=== PATIENT | female | born 1945 | race Caucasian/White ===

== ENCOUNTER → 2016-10-25 | Outpatient (CLI) | payer MEDICARE ==
--- NOTE | 2016-10-27 08:30 | MM ---
Reason for exam: screening (asymptomatic). Last mammogram was performed 1 year ago. History: Patient is postmenopausal. Family history of breast cancer in paternal aunt at age 50. Benign stereotactic core biopsy of the right breast, August 26, 2004. Core biopsy of the right breast. Physical Findings: A clinical breast exam by your physician is recommended on an annual basis and results should be correlated with mammographic findings. MG Screening Mammo w CAD Bilateral CC and MLO view(s) were taken. Prior study comparison: October 15, 2015, bilateral MG screening mammo w CAD. October 07, 2014, bilateral MG screening mammo w CAD. October 06, 2013, bilateral digital screening mammo w/CAD. September 30, 2012, bilateral digital screening mammo w/CAD. September 27, 2011, bilateral digital screening mammo w/CAD. There are scattered fibroglandular densities. Asymmetric density superior anterior to middle depth left breast appears more defined. Probably represents summation shadow but warrants further evaluation. ASSESSMENT: Incomplete: need additional imaging evaluation, BI-RAD 0 RECOMMENDATION: Special view mammogram of the left breast. If lesion persists on supplemental views, image directed ultrasound is recommended. [facility] will attempt to contact patient to return for supplemental views and ultrasound if indicated.
== END | disposition home or self-care (01) ==
LOC: RADMAMWWP 12:23
PROVIDERS: ATTEND Family Medicine
DX: Z12.31 Encounter for screening mammogram for malignant neoplasm of breast (principal)

== ENCOUNTER → 2016-11-01 | Outpatient (CLI) | payer MEDICARE ==
--- NOTE | 2016-11-01 09:18 | MM ---
Reason for exam: additional evaluation requested from abnormal screening. Last mammogram was performed less than 1 month ago. History: Patient is postmenopausal. Family history of breast cancer in paternal aunt at age 50. Benign stereotactic core biopsy of the right breast, August 26, 2004. Core biopsy of the right breast. Physical Findings: Nurse did not find any significant physical abnormalities on exam. MG 3D Work Up W/Cad LT LM and MLO view(s) were taken of the left breast. Prior study comparison: October 25, 2016, bilateral MG screening mammo w CAD. October 15, 2015, bilateral MG screening mammo w CAD. October 07, 2014, bilateral MG screening mammo w CAD. The questioned asymmetric density superiorly and anteriorly does not persist on tomosynthesis images. A precautionary 6 month follow up is recommended. These results were verbally communicated with the patient and result sheet given to the patient on 11/01/16. ASSESSMENT: Probably benign, BI-RAD 3 RECOMMENDATION: Follow-up diagnostic mammogram of the left breast in 6 months.
== END | disposition home or self-care (01) ==
LOC: RADMAMWWP 08:14
PROVIDERS: ATTEND Family Medicine
DX: R92.8 Other abnormal and inconclusive findings on diagnostic imaging of breast (principal)
CPT/HCPCS: G0206; G0279

== ENCOUNTER → 2017-03-30 | Outpatient (CLI) | payer MEDICARE ==
--- NOTE | 2017-03-30 10:10 | MR ---
EXAMINATION TYPE: MR knee RT wo con DATE OF EXAM: 03/30/2017 COMPARISON: NONE HISTORY: Rt Knee pain TECHNIQUE: Multiplanar, multisequence imaging of the right knee is performed without IV contrast. FINDINGS: MEDIAL MENISCUS: There is increased signal within the posterior horn medial meniscus without communic ation with an articular surface compatible some internal derangement. LATERAL MENISCUS: There is oblique signal within the posterior horn medial meniscus which appears to extend towards the inferior aspect of the meniscus articular surface. Internal derangement or tear ma y be present. The anterior horn of the lateral meniscus is not well visualized CRUCIATE LIGAMENTS: The anterior and posterior cruciate ligaments are intact and unremarkable. COLLATERAL LIGAMENTS: The medial collateral ligament and lateral collateral ligament complex are inta ct and unremarkable. EXTENSOR MECHANISM: Visualized quadriceps and patellar tendons are intact. EFFUSION: Large joint effusion is present. Some superficial soft tissue swelling may be present ante riorly. POPLITEAL CYST: Popliteal cyst is present TRICOMPARTMENT SPACES: There is narrowing of the medial compartment joint space. Greater narrowing is along the lateral compartment joint space. Patellofemoral joint space narrowing is present. CARTILAGE: Diffuse thinning of the articular cartilage is present throughout the knee. This is more n oticeable along the anterior patellofemoral joint space and within the lateral compartment right knee . Note is made of tibial and femoral condylar spurring laterally and to a lesser degree medially. BONE MARROW SIGNAL: No focal abnormal marrow signal is appreciated. OTHER: No additional significant abnormality is appreciated. IMPRESSION: 1. Osteoarthritic degenerative change lateral compartment right knee. Milder degenerative changes pre sent within the medial compartment and patellofemoral joint space. 2. Large joint effusion. 3. Popliteal cyst. 4. Loss of the anterior horn lateral meniscus. 5. Oblique tear versus internal derangement of the posterior horn lateral meniscus. 6. Internal derangement posterior horn medial meniscus.
== END | disposition home or self-care (01) ==
LOC: RADMRIMAIN 06:07
PROVIDERS: ATTEND Orthopaedic Surgery
DX: M17.11 Unilateral primary osteoarthritis, right knee (principal); M71.21 Synovial cyst of popliteal space [Baker], right knee; M23.321 Other meniscus derangements, posterior horn of medial meniscus, right knee; M23.341 Other meniscus derangements, anterior horn of lateral meniscus, right knee

== ENCOUNTER → 2017-05-02 | Outpatient (CLI) | payer MEDICARE ==
--- NOTE | 2017-05-02 11:40 | MM ---
Reason for exam: follow-up at short interval from prior study. Last mammogram was performed 6 months ago. History: Patient is postmenopausal. Family history of breast cancer in paternal aunt at age 50. Benign stereotactic core biopsy of the right breast, August 26, 2004. Core biopsy of the right breast. Physical Findings: Nurse did not find any significant physical abnormalities on exam. MG 3D Diag Mammo W/Cad LT CC and MLO view(s) were taken of the left breast. Prior study comparison: November 01, 2016, left breast MG 3d work up w/cad LT. October 25, 2016, bilateral MG screening mammo w CAD. October 15, 2015, bilateral MG screening mammo w CAD. October 07, 2014, bilateral MG screening mammo w CAD. October 06, 2013, bilateral digital screening mammo w/CAD. September 30, 2012, bilateral digital screening mammo w/CAD. September 27, 2011, bilateral digital screening mammo w/CAD. There are scattered fibroglandular densities. Superior asymmetric density anterior to middle depth still appears more prominent but slightly less so from 2015. No underlying abnormality seen on tomosynthesis. Additional precautionary 6 month follow up recommended. These results were verbally communicated with the patient and result sheet given to the patient on 05/02/17. ASSESSMENT: Probably benign, BI-RAD 3 RECOMMENDATION: Follow-up diagnostic mammogram of both breasts in 6 months. Back on schedule for October 2017.
== END | disposition home or self-care (01) ==
LOC: RADMAMWWP 10:49
PROVIDERS: ATTEND Family Medicine
DX: R92.8 Other abnormal and inconclusive findings on diagnostic imaging of breast (principal)
CPT/HCPCS: G0206; G0279

== ENCOUNTER 2017-05-04 07:50 | Day surgery (SDC) | payer MEDICARE ==
[2017-04-30 10:06] VITALS: BMI 25.0
--- NOTE | 2017-05-03 12:33 | HP ---
CHIEF COMPLAINT: Right knee pain. HISTORY OF PRESENT ILLNESS: The patient is a 71-year-old retired female who presents with progressive right knee pain after a previous twisting injury. She has tried medications along with injection with recurrent symptoms. She notes intermittent locking. She notes she is limping. PAST MEDICAL HISTORY: Significant for hypothyroidism, hypertension, hypercholesterolemia. PAST SURGICAL HISTORY: Significant for appendectomy and partial thyroidectomy. CURRENT MEDICATIONS: 1. Lovastatin. 2. Synthroid. 3. Tenormin. She notes allergies to SULFA. Family history is significant for heart disease and cancer. SOCIAL HISTORY: Negative for current tobacco or alcohol use. A 16-point review of systems otherwise reviewed and is noncontributory. On examination, the patient is approximately 5 foot 6, 155 pounds of mesomorphic habitus. HEENT exam is nonfocal. Neck is supple. She has painless passive motion of her right hip. Straight leg raise is negative. Active motion right knee -6 to 85 degrees of flexion that compares to the left knee -4 to 140 degrees of flexion. On the right knee, she has a mild effusion. She is tender about the medial and lateral joint line. Collaterals are stable, Angel is negative. Chandra's elicits medial and lateral pain. She has genu valgum alignment. Her distal neurovascular exam appears to be intact in the right lower extremity. X-rays from 02/07/2017 shows moderate lateral and patellofemoral compartment narrowing. MRI from 04/09/2017 shows a posterolateral meniscal tear along with degenerative changes. IMPRESSION: 1. Right knee symptomatic lateral meniscal tear. 2. Right knee moderate lateral and patellofemoral compartment osteoarthrosis. RECOMMENDATIONS: I talked to the patient at length regarding her treatment options. At this point, she is quite symptomatic and having pain and mechanical symptoms that limit her. After a thorough discussion, she opts to proceed with surgery. We will plan to proceed with arthroscopic evaluation with probable partial lateral meniscectomy of the right knee. Risks and benefits were discussed at length in layman's terms. We will likely perform that as an outpatient procedure. OLI
[~2017-05-04 07:50] MED LIST: DEXAMETHASONE SOD PHOSPHATE 10 MG/ML 1 ML VIAL IV ONE; MIDAZOLAM 2 MG/2 ML VIAL IV PRN; ONDANSETRON 4 MG/2 ML VIAL IVP ONE; ceFAZolin 1,000 MG in DEXTROSE/WATER 1 50ML.BAG IV ONE
[2017-05-04] MEDS ORDERED: LACTATED RINGERS 1,000 ML IV ONE (08:06)
[2017-05-04] MEDS ORDERED: LIDOCAINE 1% 20 ML VIAL (10MG/ML) FOR IV START INTRADERMA ONE (08:15)
[2017-05-04] MEDS ORDERED: PROPOFOL 10 MG/ML 20 ML VIAL IV ONE (09:06)
[2017-05-04] MEDS ORDERED: SUCCINYLCHOLINE CHLORIDE 100 MG/5 ML SYR IV ONE (09:06)
[2017-05-04] MEDS ORDERED: KETOROLAC 30 MG/ML 1 ML VIAL ONE (09:06)
[2017-05-04] MEDS ORDERED: fentaNYL (PF) 50 MCG/ML 2 ML AMP ONE (09:06)
[2017-05-04] MEDS ORDERED: MIDAZOLAM 2 MG/2 ML VIAL ONE (09:06)
[2017-05-04] MEDS ORDERED: LIDOCAINE 1% INJ 10MG/ML (20 ML MDV) ONE (09:06)
--- NOTE | 2017-05-04 10:00 | P.OP ---
Date of Procedure: 05/04/17 Preoperative Diagnosis: Right knee internal derangement Postoperative Diagnosis: Right knee posterior lateral meniscal tear/anterior medial meniscal tear/grade 2 chondral injury distal lateral portion medial femoral condyle/reactive synovitis of the lateral and patellofemoral compartments. Procedure(s) Performed: Right knee arthroscopic partial lateral meniscectomy/partial medial meniscectomy /medial femoral chondrectomy/partial synovectomy of the lateral and patellofemoral compartments Implants: Anesthesia: GETA Surgeon: Brendon Noguera Estimated Blood Loss (ml): 5 Pathology: none sent Condition: stable Disposition: PACU Indications for Procedure: The patient is a 71-year-old female who presents with progressive right knee pain and mechanical symptoms of her previous twisting injury despite conservative measures. A discussion of the risks and benefits of operative intervention versus continued conservative measures was made with the patient. She opted to proceed with surgery. Operative risks to include infection, neurovascular injury, development of blood clots, possible incomplete resolution of symptoms, possible worsening symptoms and need for subsequent procedures was discussed. Informed consent was obtained. Operative Findings: as below Description of Procedure: The patient was brought to the operating room, and after induction of general anesthesia examined the right knee. Collaterals were stable, Angel was negative, and posterior drawer was negative. The right lower extremity was prepped and draped in normal fashion. a superior lateral portal was made through a 3 mm skin incision superior and lateral to the patella. this was used for outflow. a lateral portal was made through a 5 mm vertical skin incision lateral to the patellar tendon above the joint line. diagnostic arthroscopy was performed. a medial portal was made through a similar incision medial to the patella tendon above the joint line. on inspection of the medial compartment, she was noted have a complex tear involving the anterior horn of the medial meniscus in the white- red junction. This to be back to stable base with straight baskets and a motorized shaver. The remaining posterior medial meniscus was stable and intact. a grade 2/3 chondral injury was noted involving the distal lateral portion of the medial femoral condyle was small loose chondral flap. this was debrided back to stable base with motorized shaver. on inspection of the notch, the anterior cruciate ligament appeared to be intact. On inspection of the lateral compartment , a complex tear involving the posterior to middle one third of the lateral meniscus was noted. This was debrided back to stable base with straight baskets and a motorized shaver. grade 3-4 chondral changes were noted diffusely in the lateral compartment. reactive synovitis involving anterolateral compartment was debrided with a motorized shaver. on inspection the patellofemoral articulation, there is marked synovitis debrided with a motorized shaver. grade 2-3 chondral changes were noted diffusely, however thoroughly were no loose chondral fragments. The gutters were clear debris. The knee was then thoroughly irrigated. The portals were closed with Steri-Strips. a sterile dressing was applied in addition to a compression stocking. the patient was awoken from general anesthesia and transferred to recovery room in good condition. blood loss was estimated at 5 mL. no complications were incurred.
[2017-05-04 10:16] VITALS: RESP 16; TEMP 98
[2017-05-04] MEDS: HYDROmorphone 1 MG/ML 1 ML SYRINGE IVP PRN ×4 (10:25→10:56)
[2017-05-04] MEDS: LACTATED RINGERS 1,000 ML IV SCH ×2 (10:35→11:25)
[2017-05-04 11:55] VITALS: BP 108/63; PULSE 66
== END 2017-05-04 12:30 | disposition home or self-care (01) ==
LOC: OR 07:50
PROVIDERS: ATTEND Orthopaedic Surgery
DX: S83.281A Other tear of lateral meniscus, current injury, right knee, initial encounter (principal); S83.241A Other tear of medial meniscus, current injury, right knee, initial encounter; X58.XXXA Exposure to other specified factors, initial encounter; M65.861 Other synovitis and tenosynovitis, right lower leg; M17.11 Unilateral primary osteoarthritis, right knee; M25.461 Effusion, right knee; M23.91 Unspecified internal derangement of right knee; I10 Essential (primary) hypertension; E89.0 Postprocedural hypothyroidism; E78.00 Pure hypercholesterolemia, unspecified; Z79.899 Other long term (current) drug therapy; Z88.2 Allergy status to sulfonamides
CPT/HCPCS: 29880; J2250; J1100; J2405; J2001; J3010; J1885; J1170; J0690; J0330; J2704

== ENCOUNTER → 2017-09-28 | Outpatient (CLI) | payer MEDICARE | END | disposition home or self-care (01) | LOC: LABWHC1 12:36 | PROVIDERS: ATTEND Orthopaedic Surgery | DX: Z01.812 Encounter for preprocedural laboratory examination (principal) | CPT/HCPCS: 87070 ==

== ENCOUNTER 2017-10-09 05:54 | Inpatient (IN) | payer MEDICARE ==
[2017-10-02 09:03] VITALS: BMI 25.0
--- NOTE | 2017-10-08 09:16 | HP ---
HISTORY AND PHYSICAL CHIEF COMPLAINT: Right knee pain. HISTORY OF PRESENT ILLNESS: The patient is a 71-year-old retired female who presents with progressive right knee pain secondary to osteoarthrosis, worsening over the past year. She has tried medications and injections. She had a previous arthroscopy. She notes the pain limits her normal function and activities. She notes significant night symptoms as well. PAST MEDICAL HISTORY: Significant for hypothyroidism and arthritis. CURRENT MEDICATIONS: 1. Lovastatin. 2. Synthroid. 3. Tenormin. ALLERGIES: She has allergies to SULFA. FAMILY HISTORY: Significant for heart disease and cancer. SOCIAL HISTORY: Negative for current tobacco or alcohol use. REVIEW OF SYSTEMS: Sixteen-point review of systems otherwise reviewed and is noncontributory. PHYSICAL EXAMINATION: On examination, the patient is approximately 5 feet 6 inches, 155 pounds of mesomorphic habitus. HEENT exam is nonfocal. Neck is supple. She has painless passive motion of the right hip. Straight leg raise is negative. Active motion right knee -10 to 95 degrees of flexion. She has a moderate effusion. She is tender about the lateral joint line. Collaterals are stable, Angel's negative, Chandra's is equivocal. She has genu valgum alignment. Her distal neurovascular appears intact in the right lower extremity. Previous x-rays of the right knee obtained in the office to include weightbearing, notch, lateral and Merchant views show severe lateral compartment osteoarthrosis with [id number] changes. IMPRESSION: Right knee severe osteoarthrosis-lateral compartment. RECOMMENDATIONS: I talked to the patient at length regarding her treatment options. At this point she is quite symptomatic despite conservative measures. After thorough discussion, she opts to proceed with surgery. We will plan to proceed with right total knee arthroplasty. Risks and benefits were discussed at length in layman's terms. We will institute DVT prophylaxis postoperatively. MMODL / IJN: [id number] /
[~2017-10-09 05:54] MED LIST changes: +ACETAMINOPHEN TAB 500 MG TAB PO ONE; +MELOXICAM 7.5 MG TAB PO ONE; +MORPHINE SULFATE 4 MG/ML SYRINGE IV PRN; +TRANEXAMIC ACID 1,000 MG in SODIUM CHLORIDE 0.9% 50 ML IVPB ONE; -ceFAZolin 1,000 MG in DEXTROSE/WATER 1 50ML.BAG IV ONE; +ceFAZolin IN SWFI 2 GM/20 ML SYRINGE IVP ONE
[2017-10-09] MEDS: LACTATED RINGERS 1,000 ML IV SCH (07:00)
[2017-10-09] MEDS ORDERED: PROPOFOL 10 MG/ML 20 ML VIAL IV ONE (08:03)
[2017-10-09] MEDS ORDERED: diphenhydrAMINE 50 MG/ML 1 ML VIAL ONE (08:03)
[2017-10-09] MEDS ORDERED: LIDOCAINE 1% INJ 10MG/ML (20 ML MDV) ONE (08:03)
[2017-10-09] MEDS ORDERED: TRANEXAMIC ACID 1,000 MG/10 ML VIAL ONE (08:03)
[2017-10-09] MEDS ORDERED: SODIUM CHLORIDE 0.9% 100 ML BAG ONE (08:03)
[2017-10-09] MEDS ORDERED: MIDAZOLAM 2 MG/2 ML VIAL ONE (08:03)
[2017-10-09] MEDS ORDERED: GLYCOPYRROLATE 0.2 MG/ML 2 ML VIAL ONE (08:03)
[2017-10-09] MEDS ORDERED: ROPIVACAINE 246.25 MG, EPINEPHrine 0.5 MG, KETOROLAC 30 MG, cloNIDine HCL/PF 80 MCG, WA... MISCELLANE ONE ×5 (08:05)
[2017-10-09] MEDS ORDERED: ceFAZolin 3,000 MG in SODIUM CHLORIDE 0.9% IRRIGATIO 3,000 ML IRRIGATION ONE (08:40)
[2017-10-09] MEDS ORDERED: LACTATED RINGERS 1,000 ML IV ONE (09:39)
[2017-10-09] MEDS ORDERED: ONDANSETRON 4 MG/2 ML VIAL IVP PRN (09:54)
[2017-10-09] MEDS ORDERED: HYDROcodone/APAP 5-325MG 1 EACH TAB PO PRN (09:54)
[2017-10-09] MEDS ORDERED: HYDROmorphone 0.5 MG/0.5 ML SYRINGE IVP PRN ×2 (09:54)
[2017-10-09] MEDS ORDERED: MAGNESIUM HYDROXIDE 2,400 MG/10 ML CUP PO PRN (09:54)
[2017-10-09] MEDS ORDERED: NALOXONE 0.4 MG/ML 1 ML VIAL IV PRN (09:54)
--- NOTE | 2017-10-09 10:28 | P.OP ---
Date of Procedure: 10/09/17 Preoperative Diagnosis: Right knee severe tricompartmental osteoarthrosis Postoperative Diagnosis: Same Procedure(s) Performed: Right total knee exkpbsgegzkb-zejxebmx-gymcbisw retaining Implants: Young and nephew size 5 cemented Oxinium femoral component, size 4 cemented tibial component, 13 mm dished articular surface, 29 mm cemented patellar component. This is a cruciate retaining implant. Anesthesia: regional, local, spinal Surgeon: Brendon Noguera Environmental Services Manager #1: Esteban Platt Estimated Blood Loss (ml): 50 Pathology: other (Bone fragments) Condition: stable Disposition: PACU Indications for Procedure: The patient's a 71-year-old female who presents with progressive right knee pain secondary to osteoarthrosis despite conservative measures. A discussion of the risks and benefits of operative intervention versus continued conservative measures was made with the patient. She opted to proceed with surgery. Operative risks to include infection, neurovascular injury, development of blood clots, possible component loosening, possible component failure need for subsequent procedures was discussed. Informed consent was obtained. Operative Findings: As below. Description of Procedure: Patient was brought to the operating room, and after induction of spinal anesthesia the right lower extremity was prepped and draped in a normal fashion. The tourniquet was inflated to 270 mmHg. A longitudinal incision extending 3 finger breaths above the superior pole of patella extending to the medial aspect the tibial tubercle was then made. The skin and subcu changed tissues were divided sharply. Electrocautery was used for hemostasis. A medial parapatellar arthrotomy was performed. The medial soft tissues to include the superficial and deep portions of the medial collateral ligament were elevated subperiosteally. I did elevate the lateral collateral and popliteus off the lateral femoral upper condyle with electrocautery as she had valgus deformity. The patella was everted. The anterior cruciate ligament was sacrificed. A starting hole was made in the distal femur 1 cm anterior to the posterior cruciate ligament origin. An intramedullary femoral guide was then gently inserted planning on 5 valgus distal cut with a 9.5 mm distal resection. The cutting block was pinned in place. The distal cut was then made. The posterior referencing sizing guide was utilized. A felt size 5 was most appropriate. 3 of external rotation was built into the system and verified off the trans-epicondylar axis and the posterior condyles. The cutting block was pinned in place. The tear, posterior, and chamfer cuts were then made. The bone fragments were removed. The trial size 5 femoral components placed and was fully seated. There is good anterior to posterior and medial to lateral fit. The distal peg holes were drilled. The trial component was then removed. An extra medullary tibial guide was utilized in line with the tibial shaft and second metatarsal distally. 3 of posterior slope planned with the cutting block. The posterior cruciate ligament was protected with a retractor. The proximal tibial cut was then made resecting 10 mm from the medial compartment. The bone was removed in one fragment. The remnants of the medial and lateral menisci were excised at the capsular junction with electrocautery. The tibia sized most appropriate size 4. The trial femoral and tibial components were placed along with a 13 mm articular surface. I was tight in extension and stable in flexion. I therefore resected an additional 2 mm of the distal femur utilizing the cutting block. The chamfer cuts were remade. The trial femoral and tibial components were placed along with a 13 mm dished articular surface. I had good stability in flexion and extension with varus and valgus stress. I was able to obtain full flexion and extension. After several flexion and extension cycles, the tibial rotation was marked with electrocautery in line with the medial one third of the tibial tubercle. Attention was then paid towards preparing the patella. A patella reamer was utilized taking this down to 14 mm of bone stock. A good flush cut was made. The patella sized at 29 mm. The peg holes were drilled. The trial components placed. The knee was taken through range of motion. I had good patellofemoral tracking with no hands technique. The trial components were then removed. The tibia was prepared in the appropriate rotation with appropriate drill and keel punch. The flexion and extension gaps were checked and felt to be symmetric. The posterior soft tissues were injected with ropivacaine. The bony surfaces were prepared with pulsatile lavage and dried. The tibial component was then cemented in placed and was fully seated. Excess cement was removed. The femoral component was cemented place and was fully seated. Excess cement was removed. The trial 13 mm articular surface was placed and the knee was put in full extension. The patella component cemented in placed and was fully seated. After the cement had sufficiently hardened, the knee was again taken through range of motion. Again I was able to obtain full flexion and extension with good stability with varus valgus stress. The trial articular (was removed and the final 13 mm dished insert was inserted. This was fully seated. Care taken to avoid any soft tissue interposition. Pulsatile lavage was again utilized. The medial parapatellar arthrotomy was closed with #2 Ethibond suture. The tourniquet was deflated with approximately 75 minutes total tourniquet time. The subcutaneous tissues were reapproximated with interrupted 2-0 Vicryl sutures. The skin was approximated with 3-0 subcuticular strata fix suture. Skin tape and adhesive was applied. A sterile dressing was applied. The patient was awoken from sedation and transferred to the recovery room in good condition. Blood loss estimated 50 mL. No complications were incurred. Sponge and needle counts were correct in the case.
--- NOTE | 2017-10-09 10:54 | XR ---
EXAMINATION TYPE: XR knee limited RT DATE OF EXAM: 10/09/2017 CLINICAL HISTORY: Right knee pain and arthritis status post total knee replacement. TECHNIQUE: Portable AP and crosstable lateral views of the right knee are obtained immediately posto peratively. COMPARISON: None FINDINGS: Metallic hardware from total right knee arthroplasty is seen and appears satisfactory in a lignment and position. There is evidence of recent surgery with diffuse subcutaneous gas, soft tissu e swelling, and percutaneous suprapatellar surgical drain noted. IMPRESSION: METALLIC HARDWARE FROM TOTAL RIGHT KNEE ARTHROPLASTY IS SATISFACTORY IN ALIGNMENT.
[2017-10-09] MEDS ORDERED: ROPIVACAINE 1,100 MG, SODIUM CHLORIDE 0.9% 330 ML MISCELLANE PRN ×2 (11:02)
--- NOTE | 2017-10-09 11:09 | P.ONQ ---
Anesthesiology Proc Note - PNB - Peripheral Nerve Block Performed Right Adductor Canal Infusion Time Out Performed: Yes Procedure Start Time: 07:06 Procedure Stop Time: 07:15 Indication: Acute Post-Operative Pain, Requested by physician Preparation: Sterile Dressing Position: Supine Catheter: Indwelling Needle Types: On-Q Needle Size: 100mm (4") Needle Gauge: 20 Technique: Ultrasound Injectate: 0.5% Ropivacaine (see comment for volume) (ropi .5% 20cc) Blood Aspirated: No Pain Paresthesia on Injection Noted: No Resistance on Injection: Normal Events: Uneventful and Well Tolerated
[2017-10-09] MEDS ORDERED: HYDROmorphone 2 MG/ML 1 ML SYRINGE IVP ONE (11:16)
[2017-10-09] MEDS: traMADol 50 MG TAB PO SCH ×3 (14:14→22:37)
[2017-10-09] MEDS: HYDROcodone/APAP 5-325MG 1 EACH TAB PO PRN ×2 (14:16→19:36)
[2017-10-09] MEDS: ceFAZolin IN SWFI 2 GM/20 ML SYRINGE IVP SCH ×2 (16:13→22:38)
[2017-10-09] MEDS ORDERED: SENNOSIDES-DOCUSATE SODIUM 1 EACH TAB PO SCH (21:00)
[2017-10-10] MEDS: HYDROcodone/APAP 5-325MG 1 EACH TAB PO PRN ×3 (01:53→13:21)
[2017-10-10 06:47] LABS: Basophils % (A) 0 %; Eosinophils # (A) 0.1 k/uL (0-0.7); Eosinophils % (A) 1 %; HCT 35.7 % (34.0-46.0); HGB 11.4 gm/dL (11.4-16.0); Lymphocytes # (A) 1.2 k/uL (1.0-4.8); Lymphocytes % (A) 16 %; MCH 30.2 pg (25.0-35.0); MCHC 31.9 g/dL (31.0-37.0); MCV 94.8 fL (80.0-100.0); Mean Platelet Volume 8.3; Monocytes # (A) 0.4 k/uL (0-1.0); Monocytes % (A) 5 %; Neutrophils # (A) 5.6 k/uL (1.3-7.7); Neutrophils % (A) 76 %; Platelet Count 183 k/uL (150-450); RBC 3.77 m/uL (3.80-5.40); WBC 7.4 k/uL (3.8-10.6)
[2017-10-10 08:44] VITALS: BP 115/62; PULSE 74; RESP 17; TEMP 98.2
[2017-10-10] MEDS ORDERED: ENOXAPARIN 30 MG/0.3 ML SYRINGE SQ SCH (09:00)
[2017-10-10] MEDS: traMADol 50 MG TAB PO SCH ×2 (09:45→13:48)
--- NOTE | 2017-10-10 11:32 | P.CONS ---
History of Present Illness - Reason for Consult Consult date: 10/10/17 Medical management Requesting physician: Brendon Noguera - Chief Complaint Right knee osteoarthritis - History of Present Illness This is a 71-year-old female with past medical history noted below significant for severe osteoarthritis of the right knee who was admitted to the hospital for elective total right knee arthroplasty. Patient is postoperative day #1. She's tolerated the procedure well. She was up in the chair when I saw her. She does not have any specific concerns or complaints. I was asked to see her for medical management. Review of Systems Review of system: 14 points review of systems were obtained and were negative except to what were mentioned in the HPI. Past Medical History Past Medical History: Eye Disorder, GERD/Reflux, Hypertension, Osteoarthritis ( OA), Thyroid Disorder Additional Past Medical History / Comment(s): bilat macular degeneration History of Any Multi-Drug Resistant Organisms: None Reported Past Surgical History: Appendectomy, Orthopedic Surgery Additional Past Surgical History / Comment(s): left bunionectomy, cyst removed from left thigh,colonoscopy, rt knee scope Past Anesthesia/Blood Transfusion Reactions: No Reported Reaction Additional Past Anesthesia/Blood Transfusion Reaction / Comm: "does not take much anesthesia" Past Psychological History: No Psychological Hx Reported Smoking Status: Never smoker Past Alcohol Use History: Occasional Past Drug Use History: None Reported - Past Family History Mother Family Medical History: No Reported History Father Additional Family Medical History / Comment(s): heart disesase Medications and Allergies Home Medications Medication Instructions Recorded Confirmed Type Aspirin [Adult Low Dose Aspirin EC] 81 mg PO DAILY 06/29/16 10/09/17 History Atenolol [Tenormin] 25 mg PO DAILY 06/29/16 10/09/17 History Calcium Carbonate [Calcium] 600 mg PO DAILY 06/29/16 10/09/17 History Hydrochlorothiazide [Hydrodiuril] 12.5 mg PO DAILY 06/29/16 10/09/17 History Lovastatin [Mevacor] 40 mg PO HS 06/29/16 10/09/17 History Multivitamins, Thera [Multivitamin] 1 tab PO DAILY 06/29/16 10/09/17 History Cholecalciferol (Vitamin D3) 2,000 unit PO DAILY 04/30/17 10/09/17 History [Vitamin D3] HYDROcodone/APAP 5-325MG [Woodman 1 tab PO Q6HR PRN #30 tab 05/04/17 10/09/17 Rx 5-325] Vit C/E/Zn/Coppr/Lutein/Zeaxan 1 cap PO BID 10/02/17 10/09/17 History [Preservision Areds 2 Softgel] Levothyroxine Sodium [Synthroid] 125 mcg PO DAILY 10/09/17 10/09/17 History Allergies Allergy/AdvReac Type Severity Reaction Status Date / Time Sulfa (Sulfonamide Allergy Itching,hiv Verified 10/09/17 10:17 Antibiotics) es Physical Exam Vitals: Vital Signs Temp Pulse Pulse Resp BP Pulse Ox 10/10/17 07:00 98.2 F 74 17 115/62 94 L 10/10/17 01:19 98 F 67 16 114/77 97 10/09/17 19:28 97.0 F L 70 16 114/58 98 10/09/17 14:00 70 124/66 10/09/17 13:45 67 106/61 10/09/17 13:30 68 113/48 10/09/17 13:15 73 111/73 10/09/17 13:00 69 111/79 10/09/17 12:45 61 119/66 10/09/17 12:30 61 112/52 10/09/17 12:15 63 119/60 10/09/17 12:00 97.6 F 64 16 126/69 96 10/09/17 11:45 68 16 122/66 100 Intake and Output 10/09/17 10/10/17 10/10/17 22:59 06:59 14:59 Intake Total 660 180 Output Total 1020 200 270 Balance -360 -200 -90 Intake: Intake, IV Titration 160 Amount Lactated Ringers 1,000 ml 160 @ 40 mls/hr IV .Q[facility]H [facility] Rx#:[id number] Oral 500 180 Output: Drainage 270 70 Right Knee 270 70 Urine 750 200 200 Uretheral (Trejo) 750 200 Other: Voiding Method Indwelling Catheter Indwelling Catheter General: The patient is awake and alert, in no distress Eye: there is normal conjunctiva bilaterally. Neck: The neck is supple, there is no JVD. Cardiovascular: Normal S1-S2, no S3-S4, no murmurs. Respiratory: Lungs clear to auscultation bilaterally Gastrointestinal: Abdomen is soft, nontender Musculoskeletal: There is no pedal edema. Neurological:. Speech is normal. Skin: Skin is warm and dry Results CBC & Chem 7: 10/10/17 06:20 Labs: Abnormal Lab Results - Last 24 Hours (Table) 10/10/17 Range/Units 06:20 RBC 3.77 L (3.80-5.40) m/uL Assessment and Plan Assessment: 1. Severe osteoarthritis of the right knee postoperative day #1 status post total right knee arthroplasty 2. DVT prophylaxis currently on subcu Lovenox per orthopedic protocol 3. Physical debility: Continue physical therapy as tolerated 4. Hypothyroidism maintained on levothyroxin Today, I reviewed her medication list and lab work results. Continue current regimen. Patient is medically cleared for discharge home. Thank you very much for the consultation.
[2017-10-10] MEDS: LACTATED RINGERS 1,000 ML IV SCH (11:41)
[2017-10-10] MEDS ORDERED: CHOLECALCIFEROL 1,000 UNIT TAB PO SCH (12:00)
--- NOTE | 2017-10-10 12:31 | P.PN ---
Subjective Progress Note Date: 10/10/17 Principal diagnosis: Status post right total knee arthroplasty Patient is seen today resting in her hospital bed, her is present at bedside. She's done very well with physical therapy. Her pain is well- controlled. She denies any headaches, lightheadedness, chest pain or shortness of breath. Objective - Vital Signs Vital signs: Vital Signs Temp 98.2 F 10/10/17 07:00 Pulse 74 10/10/17 07:00 Resp 17 10/10/17 07:00 BP 115/62 10/10/17 07:00 Pulse Ox 94 L 10/10/17 07:00 Intake & Output 10/09/17 10/10/17 10/10/17 18:59 06:59 18:59 Intake Total 1601 660 180 Output Total 1305 340 570 Balance 296 320 -390 Weight 70.307 kg Intake: IV 1501 Intake, IV Titration 160 Amount Lactated Ringers 1,000 ml 160 @ 40 mls/hr IV .Q24H [facility] Rx#:[id number] Oral 100 500 180 Output: Drainage 130 140 70 Right Knee 130 140 70 Urine 1110 200 500 Uretheral (Trejo) 750 200 Estimated Blood Loss 65 Other: Voiding Method Toilet Indwelling Catheter Indwelling Catheter # Voids 1 - Exam Right lower extremity: Incision is clean, dry, and intact. The prineo tape is in good condition. There is minimal soft tissue swelling and ecchymosis surrounding the medial and lateral aspects of the incision. Calf is soft, no tenderness with palpation. Plantar flexion, dorsiflexion, EHL, FHL are intact. Sensory exam to light touch throughout the extremity is intact, dorsal pedis pulses 2+. - Labs CBC & Chem 7: 10/10/17 06:20 Labs: Abnormal Lab Results - Last 24 Hours (Table) 10/10/17 Range/Units 06:20 RBC 3.77 L (3.80-5.40) m/uL Assessment and Plan Plan: Assessment: 1. Postop day #1 status post right total knee arthroplasty Plan: 1. Pain control, continue use of oral medication 2. GI and DVT prophylaxis, aspirin 325 mg twice a day at home 3. Wound care instructions discussed 4. Ice and elevate 5. CPM and physical therapy after discharge 6. Medical recommendations 7. Discharge planning: Patient will be discharged home today likely Time with Patient: Less than 30
--- NOTE | 2017-10-10 12:36 | P.DS ---
Providers Date of admission: 10/09/17 05:54 Expected date of discharge: 10/10/17 Attending physician: Brendon Noguera Consults: 10/09/17 09:54 Consult Physician Routine Consulting Provider: Marina Lacey Reason/Comments: medical management Do you want consulting provider notified?: Yes Primary care physician: Marina Lacey Hospital Course: Date of admission: 10/09/2017 Date of discharge: 10/10/2017 Admission diagnosis: Status post right total knee arthroplasty Discharge diagnosis: Same Attending physician: Dr. Noguera Surgical procedures: Right total knee arthroplasty Brief history: Patient is a 71-year-old female with a history of with progressive primary right knee osteoarthritis. At this point patient has failed conservative treatment measures and has opted to proceed with a elective right total knee arthroplasty. Hospital course: Details of patient's surgery can be found in operative report. Patient tolerated the procedure well and was subsequently transported to orthopedic floor. Patient's orthopeidc and medical care was provided daily. Patient had daily laboratory tests performed for evaluation of overall blood counts. Patient had daily physical therapy to include strengthening range of motion as well as education with walker ambulation. Patient had daily CPM usage as part of their physical therapy program. Patient was treated with Lovenox for their postoperative DVT prophylaxis during their inpatient stay. Patient was noted to have a relatively uneventful postoperative course. Patient reported satisfactory pain control with oral pain medications by postoperative day 0. Patient showed satisfactory progress with physical therapy. Patient moved steadily through the program and had no difficulty meeting the goals by postoperative day 1. Given patient's otherwise satisfactory course and having met physical therapy goals, plan is to discharge patient home on postoperative day 1. Discharge condition/disposition: Patient will be discharged home in stable condition. Discharge medications: Instructions are given on resumption of patient's normal daily medications per primary care recommendation, in addition patient will be prescribed Tiger 5 mg/325 mg, tramadol 50 mg, Colace 100 mg, aspirin 325 mg. Discharge instructions: 1. Wound care and infection precautions, keep incision dry and covered while showering, no lotions, creams, moisturizers. No soaking, tubs, pools, hottubs. Do not scrub over the incision. 2. Weight-bear as tolerated with walker / cane until follow-up. 3. Ice and elevate when necessary. Do not exceed 20 minutes per hour with ice pack. 4. Utilize compression sleeve until seen at first follow up appointment. 5. Visiting nursing care. 6. Home physical therapy including home CPM. 7. Pain meds and anticoagulants per prescription. 8. Pain medication has potential to cause constipation. Increase oral fluid and fiber intake. Contact primary care provider if you have not had a bowel movement within 48 hours after discharge 9. No anti-inflammatory medication until discussed at first post operative visit, this including Motrin, Aleve, Mobic, Diclofenac. 10. Follow up in office at 2 weeks postop with Hamzah Platt PA-C 11. Follow up with your primary care doctor 7-10 days after discharge. 12. Contact [facility] with any questions, . Procedures: Right total knee arthroplasty Patient Condition at Discharge: Good Plan - Discharge Summary Discharge Rx Participant: Yes New Discharge Prescriptions: New Aspirin 325 mg PO BID #60 tab Docusate [Colace] 100 mg PO DAILY #30 capsule Hydrocodone/Acetaminophen [Tiger 5-325] 1 - 2 each PO Q6HR PRN #40 tab PRN Reason: Pain traMADol HCl [Ultram] 50 mg PO Q6H PRN #40 tab PRN Reason: Pain No Action Multivitamins, Thera [Multivitamin] 1 tab PO DAILY Lovastatin [Mevacor] 40 mg PO HS Hydrochlorothiazide [Hydrodiuril] 12.5 mg PO DAILY Atenolol [Tenormin] 25 mg PO DAILY Calcium Carbonate [Calcium] 600 mg PO DAILY Cholecalciferol (Vitamin D3) [Vitamin D3] 2,000 unit PO DAILY Vit C/E/Zn/Coppr/Lutein/Zeaxan [Preservision Areds 2 Softgel] 1 cap PO BID Levothyroxine Sodium [Synthroid] 125 mcg PO DAILY Discharge Medication List Atenolol [Tenormin] 25 mg PO DAILY 06/29/16 [History] Calcium Carbonate [Calcium] 600 mg PO DAILY 06/29/16 [History] Hydrochlorothiazide [Hydrodiuril] 12.5 mg PO DAILY 06/29/16 [History] Lovastatin [Mevacor] 40 mg PO HS 06/29/16 [History] Multivitamins, Thera [Multivitamin] 1 tab PO DAILY 06/29/16 [History] Cholecalciferol (Vitamin D3) [Vitamin D3] 2,000 unit PO DAILY 04/30/17 [History] Vit C/E/Zn/Coppr/Lutein/Zeaxan [Preservision Areds 2 Softgel] 1 cap PO BID 10/02 [History] Levothyroxine Sodium [Synthroid] 125 mcg PO DAILY 10/09/17 [History] Aspirin 325 mg PO BID #60 tab 10/10/17 [Rx] Docusate [Colace] 100 mg PO DAILY #30 capsule 10/10/17 [Rx] Hydrocodone/Acetaminophen [Tiger 5-325] 1 - 2 each PO Q6HR PRN #40 tab 10/10/17 [Rx] traMADol HCl [Ultram] 50 mg PO Q6H PRN #40 tab 10/10/17 [Rx] Follow up Appointment(s)/Referral(s): [facility], [NON-STAFF] - Esteban Platt PAC [PHYSICIAN OPTOMETRIC COORDINATOR] - 10/24/17 3:30 pm Activity/Diet/Wound Care/Special Instructions: Orthopedic Discharge Instructions: 1. Wound care and infection precautions, keep incision dry and covered while showering, no lotions, creams, moisturizers. No soaking, pools, hot tubs. Do not scrub over incision. 2. Weight-bear as tolerated with walker / cane until follow-up. 3. Ice and elevate when necessary. Do not exceed 20 minutes per hour with ice pack. 4. Utilize compression sleeve until seen at first follow up appointment. 5. Visiting nursing care. 6. Home physical therapy including home CPM]. 7. Pain meds and anticoagulants per prescription. 8. Pain medication has potential to cause constipation. Increase oral fluid and fiber intake. Contact primary care provider if you have not had a bowel movement within 48 hours after discharge. 9. No anti-inflammatory medication until discussed at first post operative visit, this including Motrin, Aleve, Mobic, Diclofenac. 10. Follow up in office at 2 weeks postop with Hamzah Platt PA-C 11. Follow up with your primary care doctor 7-10 days after discharge. 12. Contact [facility] with any questions, . Discharge Disposition: HOME WITH HOME HEALTH SERVICES
[2017-10-10] MEDS ORDERED: ATORVASTATIN 10 MG TAB PO SCH (21:00)
[2017-10-11] MEDS ORDERED: LEVOTHYROXINE 125 MCG TAB PO SCH (06:30)
[2017-10-11] MEDS ORDERED: ATENOLOL 25 MG TAB PO SCH (09:00)
[2017-10-11] MEDS ORDERED: ASPIRIN 81 MG PO SCH (09:00)
== END 2017-10-10 15:18 | disposition home health service (06) | DRG 470 ==
LOC: 2ORMAIN 05:54 → 3SUR 10:52
PROVIDERS: ADMIT Orthopaedic Surgery; ATTEND Orthopaedic Surgery
PROC: 0SRC069 Replacement of Right Knee Joint with Oxidized Zirconium on Polyethylene Synthetic Substitute, Cemented, Open Approach (ICD-10-PCS; principal; 2017-10-09 08:00)
DX: M17.11 Unilateral primary osteoarthritis, right knee (principal); E03.9 Hypothyroidism, unspecified; K21.9 Gastro-esophageal reflux disease without esophagitis; I10 Essential (primary) hypertension; H35.30 Unspecified macular degeneration; Z90.89 Acquired absence of other organs; Z88.2 Allergy status to sulfonamides; Z79.899 Other long term (current) drug therapy; Z79.82 Long term (current) use of aspirin; Z79.891 Long term (current) use of opiate analgesic
CPT/HCPCS: 85025; 88300

== ENCOUNTER → 2017-11-02 | Outpatient (CLI) | payer MEDICARE ==
--- NOTE | 2017-11-05 08:08 | MM ---
Reason for exam: additional evaluation requested from prior study. Last mammogram was performed 6 months ago. History: Patient is postmenopausal. Family history of breast cancer in paternal aunt at age 50. Benign stereotactic core biopsy of the right breast, August 26, 2004. Took estrogen for 1 year beginning at age 58. Physical Findings: Nurse did not find any significant physical abnormalities on exam. MG 3D Diag Mammo W/Cad [facility] Bilateral CC and MLO view(s) were taken. Prior study comparison: May 02, 2017, left breast MG 3d diag mammo w/cad LT. November 01, 2016, left breast MG 3d work up w/cad LT. There are scattered fibroglandular densities. Finding: There are typically benign vascular calcifications. Previous mammotome biopsy in the right breast. No significant changes in finding since May 02, 2017 and November 01, 2016. These results were verbally communicated with the patient and result sheet given to the patient on 11/02/17. ASSESSMENT: Benign, BI-RAD 2 RECOMMENDATION: Routine screening mammogram of both breasts in 1 year.
== END | disposition home or self-care (01) ==
LOC: RADMAMWWP 10:54
PROVIDERS: ATTEND Family Medicine
DX: R92.8 Other abnormal and inconclusive findings on diagnostic imaging of breast (principal)
CPT/HCPCS: 77066; G0279

== ENCOUNTER → 2018-04-02 | Outpatient (CLI) | payer MEDICARE ==
--- NOTE | 2018-04-02 11:39 | MR ---
EXAMINATION TYPE: MR knee LT wo con DATE OF EXAM: 04/02/2018 COMPARISON: Plain film 01/14/2018 HISTORY: Left knee pain TECHNIQUE: Multiplanar, multisequence imaging of the left knee is performed without IV contrast. FINDINGS: MEDIAL MENISCUS: There is some increased signal in the posterior horn of the medial meniscus without evident tear, anterior horn intact LATERAL MENISCUS: Anterior horn of the lateral meniscus shows some diffuse abnormal increased signal, possible degenerative tear. Posterior horn shows some linear increased signal extending to the body, difficult to exclude a tear on coronal image 17. CRUCIATE LIGAMENTS: The anterior and posterior cruciate ligaments are intact and unremarkable. COLLATERAL LIGAMENTS: The medial collateral ligament and lateral collateral ligament complex are inta ct and unremarkable. EXTENSOR MECHANISM: Visualized quadriceps and patellar tendons are intact. EFFUSION: Suprapatellar joint effusion is present. POPLITEAL CYST: No popliteal/garcia cyst. TRICOMPARTMENT SPACES: Joint space loss is present tricompartmentally. CARTILAGE: Grade III chondromalacia present in the medial compartment, grade 3 to grade IV chondromal acia in the lateral compartment, grade III chondromalacia posterior patella BONE MARROW SIGNAL: Reactive marrow signal change present especially along the proximal tibia lateral compartment and also in the lateral femoral condyle OTHER: Possible small ganglion at the proximal aspect of the posterior tibia in the midline measurin g approximately 13 x 3 x 8 mm IMPRESSION: Osteoarthritis. Possible degenerative tear lateral meniscus. Joint effusion and additional findings aaron mccrary.
== END | disposition home or self-care (01) ==
LOC: RADMRIMAIN 10:01
PROVIDERS: ATTEND Orthopaedic Surgery
DX: M17.12 Unilateral primary osteoarthritis, left knee (principal)

== ENCOUNTER → 2018-11-07 | Outpatient (CLI) | payer MEDICARE ==
--- NOTE | 2018-11-08 12:04 | MM ---
Reason for exam: screening (asymptomatic). Last mammogram was performed 1 year ago. History: Patient is postmenopausal. Family history of breast cancer in paternal aunt at age 50. Benign stereotactic core biopsy of the right breast, August 26, 2004. Took estrogen for 1 year beginning at age 58. Physical Findings: A clinical breast exam by your physician is recommended on an annual basis and results should be correlated with mammographic findings. MG 3D Screening Mammo W/Cad Bilateral CC and MLO view(s) were taken. Prior study comparison: November 02, 2017, bilateral MG 3d diag mammo w/cad [facility]. May 02, 2017, left breast MG 3d diag mammo w/cad LT. The breast tissue is heterogeneously dense. This may lower the sensitivity of mammography. Previous mammotome biopsy in the right breast. No significant changes when compared with prior studies. ASSESSMENT: Benign, BI-RAD 2 RECOMMENDATION: Routine screening mammogram of both breasts in 1 year.
== END | disposition home or self-care (01) ==
LOC: RADMAMWWP 11:53
PROVIDERS: ATTEND Family Medicine
DX: Z12.31 Encounter for screening mammogram for malignant neoplasm of breast (principal)
CPT/HCPCS: 77063; 77067

== ENCOUNTER → 2019-11-14 | Outpatient (CLI) | payer MEDICARE ==
--- NOTE | 2019-11-17 13:11 | MM ---
Reason for exam: screening (asymptomatic). Last mammogram was performed 1 year ago. History: Patient is postmenopausal. Family history of breast cancer in paternal aunt at age 50. Benign stereotactic core biopsy of the right breast, August 26, 2004. Took estrogen for 1 year beginning at age 58. Physical Findings: A clinical breast exam by your physician is recommended on an annual basis and results should be correlated with mammographic findings. MG 3D Screening Mammo W/Cad Bilateral CC and MLO view(s) were taken. Prior study comparison: November 07, 2018, bilateral MG 3d screening mammo w/cad. November 02, 2017, bilateral MG 3d diag mammo w/cad [facility]. There are scattered fibroglandular densities. There is no discrete abnormality. No significant changes when compared with prior studies. ASSESSMENT: Negative, BI-RAD 1 RECOMMENDATION: Routine screening mammogram of both breasts in 1 year.
== END | disposition home or self-care (01) ==
LOC: RADMAMWWP 12:12
PROVIDERS: ATTEND Family Medicine
DX: Z12.31 Encounter for screening mammogram for malignant neoplasm of breast (principal)
CPT/HCPCS: 77063; 77067

== ENCOUNTER → 2021-01-06 | Outpatient (CLI) | payer MEDICARE ==
--- NOTE | 2021-01-10 11:56 | MM ---
Reason for exam: screening (asymptomatic). Last mammogram was performed 1 year and 2 months ago. History: Patient is postmenopausal. Family history of breast cancer in paternal aunt at age 50. Benign stereotactic core biopsy of the right breast, August 26, 2004. Took estrogen for 1 year beginning at age 58. Taking other hormone beginning at age 74. Physical Findings: A clinical breast exam by your physician is recommended on an annual basis and results should be correlated with mammographic findings. MG 3D Screening Mammo W/Cad Bilateral CC and MLO view(s) were taken. Prior study comparison: November 14, 2019, bilateral MG 3d screening mammo w/cad. November 07, 2018, bilateral MG 3d screening mammo w/cad. There are scattered fibroglandular densities. No significant changes when compared with prior studies. ASSESSMENT: Benign, BI-RAD 2 RECOMMENDATION: Routine screening mammogram of both breasts in 1 year.
== END | disposition home or self-care (01) ==
LOC: RADMAMWWP 09:30
PROVIDERS: ATTEND Family Medicine
DX: Z12.31 Encounter for screening mammogram for malignant neoplasm of breast (principal); Z78.0 Asymptomatic menopausal state; Z80.3 Family history of malignant neoplasm of breast
CPT/HCPCS: 77063; 77067

== ENCOUNTER → 2022-02-15 | Outpatient (CLI) | payer MEDICARE ==
--- NOTE | 2022-02-17 12:42 | MM ---
Reason for Exam: Screening (asymptomatic). Last mammogram was performed 1 year(s) and 1 month(s) ago. Patient History: Menarche at age 9. First Full-Term at age 21. Postmenopausal. Estrogen for 1 year from age 58 until age 59. 08/26/2004, Benign Stereotactic Core Biopsy on the right side. Paternal aunt had breast cancer, age 50. Risk Values: Stacey 5 year model risk: 2.0%. NCI Lifetime model risk: 3.6%. Film Views: Bilateral CC views were taken. Bilateral MLO views were taken. Prior Study Comparison: 11/07/2018 Bilateral Screening Mammogram, [facility]. 11/14/2019 Bilateral Screening Mammogram, [facility]. 01/06/2021 Bilateral Screening Mammogram, [facility]. Tissue Density: The breast tissue is heterogeneously dense. This may lower the sensitivity of mammography. Findings: Analyzed By CAD. Benign-appearing vascular calcifications are redemonstrated bilaterally. Mammotome biopsy clip right breast again seen. There is no suspicious group of microcalcifications or new suspicious mass in either breast. Overall Assessment: Benign, BI-RAD 2 Management: Screening Mammogram of both breasts in 1 year. A clinical breast exam by your physician is recommended on an annual basis and results should be correlated with mammographic findings. Electronically signed and approved by: Jay Ruiz M.D.
== END | disposition home or self-care (01) ==
LOC: RADMAMWWP 14:27
PROVIDERS: ATTEND Family Medicine
DX: Z12.31 Encounter for screening mammogram for malignant neoplasm of breast (principal); Z78.0 Asymptomatic menopausal state; Z80.3 Family history of malignant neoplasm of breast
CPT/HCPCS: 77063; 77067

== ENCOUNTER → 2023-02-20 | Outpatient (CLI) | payer MEDICARE ==
--- NOTE | 2023-02-21 19:11 | MM ---
Reason for Exam: Screening (asymptomatic). Last screening mammogram was performed 12 month(s) ago. Patient History: Menarche at age 9. First Full-Term at age 21. Postmenopausal. Estrogen for 1 year from age 58 until age 59. 08/26/2004, Benign Stereotactic Core Biopsy on the right side. Paternal aunt had breast cancer, age 50. Paternal grandmother had breast cancer. Risk Values: Stacey 5 year model risk: 2.0%. NCI Lifetime model risk: 3.3%. Prior Study Comparison: 11/14/2019 Bilateral Screening Mammogram, [facility]. 01/06/2021 Bilateral Screening Mammogram, [facility]. 02/15/2022 Bilateral MG 3D screening mammo w/cad, [facility]. Tissue Density: There are scattered fibroglandular densities. Findings: Analyzed By CAD. Benign vascular calcifications on both sides. There is no suspicious group of microcalcifications or new suspicious mass in either breast. Overall Assessment: Benign, BI-RAD 2 Management: Screening Mammogram of both breasts in 1 year. . Patient should continue monthly self-breast exams. A clinical breast exam by your physician is recommended on an annual basis. This exam should not preclude additional follow-up of suspicious palpable abnormalities. Note on Stacey scores and lifetime risk: 1. A Stacey score greater than 3% is considered moderate risk. If this is the case, consider specialist referral to assess eligibility for a risk reducing agent. 2. If overall lifetime risk for the development of breast cancer is 20% or higher, the patient may qualify for future screening with alternating mammogram and breast MRI. Electronically signed and approved by: Luann Green M.D. Radiologist
== END | disposition home or self-care (01) ==
LOC: RADMAMWWP 09:26
PROVIDERS: ATTEND Family Medicine
DX: Z12.31 Encounter for screening mammogram for malignant neoplasm of breast (principal); Z78.0 Asymptomatic menopausal state; Z80.3 Family history of malignant neoplasm of breast
CPT/HCPCS: 77063; 77067

== ENCOUNTER → 2023-03-30 | Outpatient (CLI) | payer MEDICARE ==
--- NOTE | 2023-03-30 08:58 | XR ---
EXAMINATION TYPE: XR abdomen 2V DATE OF EXAM: 03/30/2023 8:30 AM INDICATION: Patient age:Female; 77 years old; Reason for study: [id number]; [facility]. COMPARISON: None. TECHNIQUE: Two views of the abdomen were obtained. FINDINGS: The bowel gas pattern is nonspecific without dilated loops of small or large bowel. There i s no evidence for organomegaly or pneumoperitoneum. There is wedging of the L1 vertebral body with gr eater than 50% height loss. Grade 1 anterior face L4 and L5. Multilevel degeneration changes with fac et joint arthropathy osteophytes and disc space narrowing. There is pseudoarthrosis of the spinous pr ocesses. No abnormal calcifications are present. Fecal material and gas are demonstrated throughout t he colon and rectum. IMPRESSION: 1. Nonspecific bowel gas pattern without radiographic evidence for acute process. 2. 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 Other findings exerts disease.
== END | disposition home or self-care (01) ==
LOC: LABWHC1 08:05
PROVIDERS: ATTEND Family Medicine
DX: K59.00 Constipation, unspecified (principal); M43.16 Spondylolisthesis, lumbar region; M47.812 Spondylosis without myelopathy or radiculopathy, cervical region
CPT/HCPCS: 74019

== ENCOUNTER → 2023-05-23 | Day surgery (SDC) | payer MEDICARE ==
[2023-05-18 15:40] VITALS: BMI 24.2
[~2023-05-23] MED LIST changes: -ACETAMINOPHEN TAB 500 MG TAB PO ONE; -DEXAMETHASONE SOD PHOSPHATE 10 MG/ML 1 ML VIAL IV ONE; +LIDOCAINE 1% (10MG/ML) FOR IV START INTRADERMA PRN; -MELOXICAM 7.5 MG TAB PO ONE; -MIDAZOLAM 2 MG/2 ML VIAL IV PRN; -MORPHINE SULFATE 4 MG/ML SYRINGE IV PRN; -ONDANSETRON 4 MG/2 ML VIAL IVP ONE; +PROPOFOL 10 MG/ML 20 ML VIAL IV ONE; -TRANEXAMIC ACID 1,000 MG in SODIUM CHLORIDE 0.9% 50 ML IVPB ONE; -ceFAZolin IN SWFI 2 GM/20 ML SYRINGE IVP ONE
[2023-05-23 10:46] VITALS: RESP 16; TEMP 98
[2023-05-23] MEDS: LACTATED RINGERS 1,000 ML IV SCH ×2 (10:46→11:12)
--- NOTE | 2023-05-23 11:32 | P.PCN ---
Date of Procedure: 05/23/23 Procedure(s) Performed: BRIEF HISTORY: Patient is a 77-year-old pleasant male scheduled for an elective colonoscopy as a part of evaluation of chronic diarrhea for the last 1 year duration. She is been having 7-8 loose watery bowel movements daily. No blood or mucus in the stool. PROCEDURE PERFORMED: Colonoscopy With biopsy. PREOPERATIVE DIAGNOSIS:Chronic diarrhea]. IV sedation per Anesthesia. PROCEDURE: After informed consent was obtained, the patient, was brought into the endoscopy unit. IV sedation was administered by Anesthesia under continuous monitoring. Digital rectal examination was normal. Initially the Olympus CF-160 flexible video colonoscope was then inserted in the rectum, gradually advanced into the cecum without any difficulty. Careful examination was performed as the scope was gradually being withdrawn. Ileocecal valve and the appendiceal orifice were visualized and appeared normal. Prep was excellent. Mucosa of the cecum, ascending colon, transverse colon, descending colon, sigmoid colon, and rectum appeared normal. and biopsies were done from ascending and descending colon to evaluate for microscopic/collagenous colitis Retroflexion was performed in the rectum and no lesions were seen. The patient tolerated the procedure well. IMPRESSION: Normal-appearing colon from rectum to cecum with no evidence of colorectal neoplasia. RECOMMENDATIONS: Findings of this examination were discussed with the patientas well as a family. She was advised to follow with the biopsy results. Follow up in office in 2-3 weeks.].
[2023-05-23 11:51] VITALS: BP 123/62; PULSE 68
== END ==
LOC: ORWHC2ENDO 10:00
PROVIDERS: ATTEND Internal Medicine Gastroenterology
DX: K21.9 Gastro-esophageal reflux disease without esophagitis (principal); I10 Essential (primary) hypertension; E07.9 Disorder of thyroid, unspecified; M19.90 Unspecified osteoarthritis, unspecified site; Z79.899 Other long term (current) drug therapy; Z79.890 Hormone replacement therapy; Z88.2 Allergy status to sulfonamides
CPT/HCPCS: 88305; 88313; 45380; J2704

== ENCOUNTER → 2024-02-28 | Outpatient (CLI) | payer MEDICARE ==
--- NOTE | 2024-02-28 13:04 | MM ---
Reason for Exam: Screening (asymptomatic). Last mammogram was performed 1 year(s) and 1 month(s) ago. Patient History: Menarche at age 9. First Full-Term at age 21. Postmenopausal. Estrogen for 1 year from age 58 until age 59. 08/26/2004, Benign Stereotactic Core Biopsy on the right side. Paternal aunt had breast cancer, age 50. Paternal grandmother had breast cancer. Risk Values: Stacey 5 year model risk: 1.9%. NCI Lifetime model risk: 3.0%. Prior Study Comparison: 01/06/2021 Bilateral Screening Mammogram, [facility]. 02/15/2022 Bilateral MG 3D screening mammo w/cad, [facility]. 02/20/2023 Bilateral MG 3D screening mammo w/cad, [facility]. Tissue Density: There are scattered areas of fibroglandular density. Findings: Analyzed By CAD. Right breast: There is no suspicious group of microcalcifications or new suspicious mass. Left breast: There is no suspicious group of microcalcifications or new suspicious mass. Overall Assessment: Negative, BI-RAD 1 Management: Screening Mammogram of both breasts in [address] [facility] will attempt to contact patient to return for supplemental views and ultrasound if indicated. Patient should continue monthly self-breast exams. A clinical breast exam by your physician is recommended on an annual basis. This exam should not preclude additional follow-up of suspicious palpable abnormalities. Note on Stacey scores and lifetime risk: 1. A Stacey score greater than 3% is considered moderate risk. If this is the case, consider specialist referral to assess eligibility for a risk reducing agent. 2. If overall lifetime risk for the development of breast cancer is 20% or higher, the patient may qualify for future screening with alternating mammogram and breast MRI. Electronically signed and approved by: Pavan Martinez DO
== END | disposition home or self-care (01) ==
LOC: RADMAMWWP 09:38
PROVIDERS: ATTEND Family Medicine
DX: Z12.31 Encounter for screening mammogram for malignant neoplasm of breast (principal); Z78.0 Asymptomatic menopausal state; Z80.3 Family history of malignant neoplasm of breast
CPT/HCPCS: 77063; 77067

== ENCOUNTER → 2024-05-28 | Outpatient (CLI) | payer MEDICARE | END | disposition home or self-care (01) | LOC: LABPAT 11:27 | PROVIDERS: ATTEND Orthopaedic Surgery | DX: Z01.812 Encounter for preprocedural laboratory examination (principal); M17.12 Unilateral primary osteoarthritis, left knee; Z22.322 Carrier or suspected carrier of Methicillin resistant Staphylococcus aureus | CPT/HCPCS: 87070 ==

== ENCOUNTER 2024-07-08 08:15 | Day surgery (SDC) | payer MEDICARE ==
[2024-07-03 10:18] VITALS: BMI 23.9
--- NOTE | 2024-07-07 08:14 | P.HPOR ---
History of Present Illness H&P Date: 07/07/24 Chief Complaint: Left knee pain The patient is an 78-year-old retired female who presents with progressive left knee pain for the past several years worsening over the past 6 months. She is having pain with weightbearing activities and at night. She has intermittent giving way. She tried medications in addition to previous injections with only temporary partial relief. Review of Systems Per HPI Past Medical History Past Medical History: Eye Disorder, GERD/Reflux, Hearing Disorder / Deafness, Hypertension, Osteoarthritis (OA), Thyroid Disorder Additional Past Medical History / Comment(s): Bilateral macular degeneration, collagenous colitis, bilateral hearing aid use. History of Any Multi-Drug Resistant Organisms: None Reported Past Surgical History: Appendectomy, Joint Replacement, Orthopedic Surgery Additional Past Surgical History / Comment(s): Left bunionectomy, cyst removed from left thigh, colonoscopy, total right knee replacement. Past Anesthesia/Blood Transfusion Reactions: No Reported Reaction Additional Past Anesthesia/Blood Transfusion Reaction / Comment(s): "Does not take much anesthesia." Smoking Status: Never smoker - Past Family History Mother Family Medical History: No Reported History Father Additional Family Medical History / Comment(s): Heart disease. Son(s) Family Medical History: Cancer Additional Family Medical History / Comment(s): Bladder cancer. Medications and Allergies Home Medications Medication Instructions Recorded Confirmed Type Lovastatin [Mevacor] 40 mg PO HS 06/29/16 07/03/24 History Multivitamins, Thera [Multivitamin] 1 tab PO DAILY 06/29/16 07/03/24 History atenoloL [Tenormin] 25 mg PO QAM 06/29/16 07/03/24 History hydroCHLOROthiazide [Hydrodiuril] 12.5 mg PO QAM 06/29/16 07/03/24 History Vit C/E/Zn/Coppr/Lutein/Zeaxan 1 cap PO BID 10/02/17 07/03/24 History [Preservision Areds 2 Softgel] Levothyroxine Sodium [Synthroid] 137 mcg PO QAM 10/09/17 07/03/24 History Aspirin [Adult Low Dose Aspirin EC] 81 mg PO DAILY 07/03/24 07/03/24 History Cholecalciferol [Vitamin D3 (25 25 mcg PO DAILY 07/03/24 07/03/24 History Mcg = 1000 Iu)] Glucosamine/Chondr Schofield A Sod [Osteo 1 each PO DAILY 07/03/24 07/03/24 History Bi-Flex Caplet] Ibuprofen [Motrin Ib] 400 mg PO DAILY 07/03/24 07/03/24 History Allergies Allergy/AdvReac Type Severity Reaction Status Date / Time Sulfa (Sulfonamide Allergy Itching,hiv Verified 07/03/24 10:08 Antibiotics) es Physical Examination - Knee left Appearance: effusion Effusion grade: trace Valgus alignment in stance: 10 degrees Tenderness with palpation: anterior, lateral Pain: throughout ROM Gait: limping ROM: extension: -15 degrees ROM: flexion: 110 degrees Crepitus with motion: Yes Strength: extension: 5/5 Strength: flexion: 5/5 Meniscal tests: lateral meniscal tests: positive, lateral joint line pain: positive Results The patient is a well-developed well-nourished female approximately 5 foot 5, 145 pounds of mesomorphic habitus. HEENT exam is nonfocal, neck is supple. She has painless passive motion of her left hip. Straight leg raise is negative. She's tender about the lateral joint line of the left knee. Collaterals are stable, Angel was negative, and Chandra's is equivocal. She has an antalgic gait pattern. Her distal neurovascular appears intact in the left lower extremity. - Diagnostic results Knee x-ray: image reviewed (X-rays of the left knee obtaining office show severe lateral and patellofemoral compartment osteoarthrosis with [id number] changes along with subchondral sclerosis.) Assessment and Plan Assessment: Left knee severe lateral and patellofemoral compartment osteoarthrosis Plan: I talked to the patient at length regarding her condition along with treatment options. At this point she is quite asymptomatic having pain and mechanical symptoms related to her left knee osteoarthrosis despite extensive previous conservative measures. After a thorough discussion she opts to proceed with surgery. We'll plan to proceed with left total knee arthroplasty. Risks and benefits were discussed at length in layman's terms. We will institute DVT prophylaxis postoperatively.
[~2024-07-08 08:15] MED LIST changes: -LIDOCAINE 1% (10MG/ML) FOR IV START INTRADERMA PRN; -PROPOFOL 10 MG/ML 20 ML VIAL IV ONE; +TRANEXAMIC 1,000 MG/100ML-NACL 1,000 MG in SALINE 1 100ML.BAG IVPB PRN
[2024-07-08] MEDS: LACTATED RINGERS 1,000 ML IV SCH (09:00)
[2024-07-08] MEDS: ACETAMINOPHEN TAB 500 MG TAB PO PRN (09:13)
[2024-07-08] MEDS: MELOXICAM 7.5 MG TAB PO PRN (09:14)
[2024-07-08] MEDS: DEXAMETHASONE SOD PHOSPHATE 4 MG/ML 1 ML VIAL IVP STA (09:15)
[2024-07-08] MEDS: ONDANSETRON 4 MG/2 ML VIAL IVP STA (09:16)
[2024-07-08] MEDS: fentaNYL (PF) 50 MCG/ML 2 ML AMP IVP ONE (09:23)
[2024-07-08] MEDS: MIDAZOLAM 2 MG/2 ML VIAL IVP ONE (09:23)
[2024-07-08] MEDS ORDERED: ePHEDrine 50 MG/ML 1 ML VIAL ONE (10:23)
[2024-07-08] MEDS ORDERED: ROPIVACAINE 5 MG/ML 30 ML VIAL ONE (10:23)
[2024-07-08] MEDS ORDERED: PROPOFOL 10 MG/ML 20 ML VIAL IV ONE (10:23)
[2024-07-08] MEDS ORDERED: MIDAZOLAM 2 MG/2 ML VIAL ONE (10:23)
[2024-07-08] MEDS ORDERED: fentaNYL (PF) 50 MCG/ML 2 ML AMP ONE (10:23)
[2024-07-08] MEDS ORDERED: TRANEXAMIC 1,000 MG/100ML-NACL PREMIX BAG ONE (10:23)
[2024-07-08] MEDS ORDERED: SODIUM CHLORIDE 0.9% (PF) 10 ML VIAL ONE (10:23)
[2024-07-08] MEDS: ceFAZolin 1,000 MG in SODIUM CHLORIDE 0.9% 1,000 ML IRRIGATION ONE (10:53)
--- NOTE | 2024-07-08 11:13 | P.ANPRN ---
Procedure Note - Anesthesia - Nerve Block Performed Left Adductor Canal Infusion Time Out Performed: Yes (0922) Date of Procedure: 07/08/24 Procedure Start Time: Procedure Stop Time: Location of Patient: PreOp Indication: Acute Post-Operative Pain, Requested by Surgeon Specifically requested for management of pain by : Brendon Noguera Sedation Type: Sedate with meaningful contact maintained Preparation: Sterile Prep, Sterile Dressing Position: Supine Catheter Depth at Skin (cm): 8 Catheter: Indwelling Needle Types: Pajunk Needle Gauge: 18 Ultrasound used to visualize needle placement: Yes Ultrasound used to observe medication spread: Yes Injectate: 0.5% Ropivacaine (see comment for volume) (15cc+10cc nacl pf) Blood Aspirated: No Pain Paresthesia on Injection Noted: No Resistance on Injection: Normal Image Stored and Saved: Yes Events: Uneventful and Well Tolerated
--- NOTE | 2024-07-08 11:13 | P.ANPRN ---
Procedure Note - Anesthesia - Nerve Block Performed Left iPack Single Time Out Performed: Yes (0922) Date of Procedure: 07/08/24 Procedure Start Time: : Procedure Stop Time: :33 Location of Patient: PreOp Indication: Acute Post-Operative Pain, Requested by Surgeon Specifically requested for management of pain by DrJeanette: Brendon Noguera Sedation Type: Sedate with meaningful contact maintained Preparation: Sterile Prep Position: Supine Catheter: None Needle Types: Pajunk Needle Gauge: 21 Ultrasound used to visualize needle placement: Yes Ultrasound used to observe medication spread: Yes Injectate: 0.5% Ropivacaine (see comment for volume) (15cc+10cc nacl pf) Blood Aspirated: No Pain Paresthesia on Injection Noted: No Resistance on Injection: Normal Image Stored and Saved: Yes Events: Uneventful and Well Tolerated
[2024-07-08] MEDS: LACTATED RINGERS 1,000 ML IV ONE (11:20)
[2024-07-08] MEDS ORDERED: NALOXONE 0.4 MG/ML 1 ML VIAL IV PRN (12:08)
[2024-07-08] MEDS ORDERED: ONDANSETRON 4 MG/2 ML VIAL IVP PRN (12:08)
[2024-07-08] MEDS ORDERED: hydrOXYzine pamoate 25 MG CAP PO PRN (12:08)
[2024-07-08] MEDS ORDERED: HYDROcodone/APAP 5-325MG 1 EACH TAB PO PRN (12:08)
[2024-07-08] MEDS ORDERED: HYDROmorphone 0.5 MG/0.5 ML SYRINGE IVP PRN ×2 (12:08)
[2024-07-08] MEDS ORDERED: MAGNESIUM HYDROXIDE 2,400 MG/30 ML CUP PO PRN (12:08)
--- NOTE | 2024-07-08 12:29 | P.OP ---
Date of Procedure: 07/08/24 Preoperative Diagnosis: Left knee severe tricompartmental osteoarthrosis Postoperative Diagnosis: Same Procedure(s) Performed: Left total knee arthroplastycementedcruciate retaining Implants: [employer] journey 2 size 5 cemented femoral component, size 4 cemented tibial component, 9 mm articular surface, 29 mm cemented patellar component. This is a cruciate retaining implant. Anesthesia: regional, spinal Surgeon: Brendon Noguera Business Continuity Consultant #1: Masood Brady Estimated Blood Loss (ml): 50 Pathology: none sent Condition: stable Disposition: PACU Indications for Procedure: The patient is an 78-year-old female who presents with progressive left knee pain secondary to osteoarthrosis despite conservative measures. A discussion of the risks and benefits of operative intervention versus continued conservative measures was made with the patient. She opted to proceed with surgery. Operative risks including infection, neurovascular injury, development of blood clots, possible component loosening/failure and possible need for subsequent procedures was discussed. Informed consent was obtained. Operative Findings: As below Description of Procedure: The patient was brought to the operating room, and after induction of spinal anesthesia the left lower extremity was prepped and draped in a normal fashion. The tourniquet was inflated to 270 mmHg. A longitudinal incision extending 3 finger breaths above the superior pole of the patella extending to the medial aspect the tibial tubercle was then made. The skin and subcutaneous tissues were divided sharply. Electrocautery was used for hemostasis. A medial parapatellar arthrotomy was then performed. The medial soft tissues to include the superficial and deep portions of the medial collateral ligament as well as the medial hamstring tendons were elevated subperiosteally. The patella was everted. The knee was flexed. A portion of the retropatellar fat pad was excised sharply. The anterior cruciate ligament was sacrificed. I did release the lateral collateral and popliteus off the lateral femoral epicondyle with electrocautery to aid in balancing. A starting hole was made in the distal femur 1 cm anterior to the posterior cruciate origin. An intramedullary femoral guide was gently inserted planning on 5 valgus distal cut with 9 mm distal resection. The cutting block was pinned in place. The distal cut was then made. The posterior referencing sizing guide was utilized. 3 of external rotation was built into the system and verified off the trans-epicondylar axis and the posterior condyles. I felt size 5 was most appropriate. The cutting block was pinned in place. The anterior, posterior, and chamfer cuts were then made. The bone fragments were removed. A sulcus cut was then made with the appropriate guide. The trial size 5 femoral component was then placed and was fully seated. There was good anterior to posterior and medial to lateral fit. The distal peg holes were then drilled. The trial component was then removed. Attention was then paid towards preparing the proximal tibia. An extra medullary guide was utilized in line with the tibial shaft and second metatarsal distally. A 7 posterior slope was planned. I planned on 6 mm resection from the medial compartment. The cutting block was pinned in place. The proximal tibial cut was then made. The bone was removed in one fragment. The remnants of the medial and lateral menisci were excised the capsule junction with electrocautery. The tibia sized most appropriately at size 4. The posterior osteophytes off the distal femur were carefully removed with a curved osteotome. The trial tibial and femoral components were placed along with a 9 millimeters articular surface. I was able to obtain full flexion and extension with good stability with varus and valgus stress. After several flexion and extension cycles, the tibial rotation was marked with electrocautery in line with the medial one third of the tibial tubercle. Attention was then paid towards preparing the patella. A patella reamer was utilized taking this down to 14 mm of bone stock. A good flush cut was made. The patella sized most appropriately at 29 millimeters. The peg holes were then drilled. The trial component was placed. The knee was taken through a range of motion. I had good patellofemoral tracking with no hands technique. The trial components were then removed. The tibia was prepared in the appropriate rotation with appropriate drill and keel punch. The flexion and extension gaps were checked and felt to be symmetric. The bony surfaces were prepared with pulsatile lavage and dried. The deep tibial component was then cemented in place and was fully seated. Excess cement was removed. The femoral component was cemented in place and was fully seated. Again excess cement was removed. The trial 9 millimeters surface was then inserted in the knee was put in full extension. The patella component was cemented in place. After the cement had sufficiently hardened, the knee was again taken through a range of motion. Again there was good stability in flexion and extension with varus and valgus stress. The trial articular surface was then removed. The final articular surface was placed and was impacted. Care was taken to avoid any soft tissue interposition. Pulsatile lavage was again utilized. The tourniquet was deflated with approximately 60 minutes total tourniquet time. There was minimal drainage therefore a deep drain was not placed. The medial parapatellar arthrotomy was then closed with #2 Ethibond suture. The subcutaneous tissues were reapproximated interrupted 2- 0 Vicryl sutures. The skin was reapproximated with 3-0 subarticular strata fix suture. Skin tape and adhesive was applied. A sterile dressing was applied. The patient was then awoken from sedation and transferred to recovery room in good condition. Blood loss was estimated at 50 milliliters. No complications were incurred. Sponge and needle counts were correct at the end the case. Masood MCGOWAN assisted during the major components this case to include exposure, bone resection, and implantation.
--- NOTE | 2024-07-08 12:56 | XR ---
EXAMINATION TYPE: XR knee limited LT DATE OF EXAM: 07/08/2024 12:52 PM CLINICAL INDICATION: Female, 78 years old with history of Evaluation for Postop abnormality and align ment; [facility] COMPARISON: None. TECHNIQUE: XR knee limited LT; examined in Frontal, lateral projections. FINDINGS: Status post total knee arthroplasty changes with hardware in appropriate alignment and in tact. No evidence of fracture. Subcutaneous lucencies and lucencies within the joint consistent with surgical changes. IMPRESSION: Status post total knee arthroplasty changes with hardware intact and appropriate alignment. No fractu res identified. [facility], , 07/08/2024 12:53 PM
[2024-07-08] MEDS: HYDROmorphone 0.5 MG/0.5 ML SYRINGE IVP PRN (13:56)
[2024-07-08] MEDS: ROPIVACAINE 1,100 MG, SODIUM CHLORIDE 0.9% 500 ML 330 ML, EMPTY PAIN BALL 1 EACH MISCELLANE PRN (14:48)
[2024-07-08] MEDS: SENNOSIDES-DOCUSATE SODIUM 1 EACH TAB PO SCH (20:34)
[2024-07-08] MEDS: HYDROcodone/APAP 7.5-325MG 1 EACH TAB PO PRN (22:26)
[2024-07-08 23:08] VITALS: RESP 16
--- NOTE | 2024-07-09 06:55 | P.PN ---
Progress Note - Text Progress Note Date: 07/09/24 Postoperative day # 1 status post total knee arthroplasty, and adductor canal catheter placed for postoperative analgesia, currently at ropivacaine 0.2% 8 mL per hour and continuous infusion, visual analogue scale is 3/10, patient using oral pain medication for breakthrough pain. Assessment and plan= Acute postoperative pain, adductor canal catheter for pain control, pain is well controlled we'll continue the same management.
[2024-07-09 08:32] VITALS: TEMP 97.5
[2024-07-09 08:43] LABS: Basophils # (A) 0.03 X 10*3/uL (0.00-0.10); Basophils % (A) 0.2 %; Eosinophils # (A) 0.05 X 10*3/uL (0.04-0.35); Eosinophils % (A) 0.4 %; HCT 32.5 % (37.2-46.3); HGB 10.9 g/dL (12.0-15.0); Lymphocytes # (A) 1.26 X 10*3/uL (0.90-5.00); Lymphocytes % (A) 10.3 %; MCHC 33.5 g/dL (32.0-37.0); MCV 92.3 FL (80.0-97.0); Mean Platelet Volume 11.5 FL (9.5-12.2); Monocytes # (A) 0.93 X 10*3/uL (0.20-1.00); Monocytes % (A) 7.6 %; NRBC Per 100 WBC 0 X 10*3/uL (0.00-0.01); Neutrophils # (A) 9.92 X 10*3/uL (1.80-7.70); Neutrophils % (A) 81.2 %; Platelet Count 210 X 10*3/uL (140-440); RBC 3.52 X 10*6/uL (4.10-5.20); RDW 12.9 % (11.5-14.5); WBC 12.23 X 10*3/uL (4.50-10.00)
[2024-07-09] MEDS ORDERED: NON FORMULARY DRUG (Glucosamine/Chondr Su A Sod [Osteo Bi-Flex Caplet] 1 EACH Tablet) PO SCH (09:00)
[2024-07-09] MEDS: hydroCHLOROthiazide 12.5 MG CAP PO SCH (10:04)
[2024-07-09] MEDS: ASPIRIN 81 MG PO SCH (10:04)
[2024-07-09] MEDS: IBUPROFEN 400 MG TAB PO SCH (10:04)
[2024-07-09] MEDS: atenoloL 25 MG TAB PO SCH (10:04)
[2024-07-09] MEDS: RIVAROXABAN 10 MG TAB PO SCH (10:04)
[2024-07-09] MEDS: CHOLECALCIFEROL 25 MCG (1000 IU) TABLET PO SCH (10:05)
[2024-07-09] MEDS: MULTIVITAMINS, THERA 1 EACH TAB PO SCH (10:05)
[2024-07-09] MEDS: LEVOTHYROXINE 137 MCG TAB PO SCH (10:08)
[2024-07-09] MEDS: VIT A,C & E-LUTEIN-MINERALS 1 EACH TAB PO SCH (10:08)
--- NOTE | 2024-07-09 12:13 | P.HPIM ---
History of Present Illness H&P Date: 07/09/24 This is an 78-year-old female patient of Dr. William who presented for an elective left knee arthroplasty with Dr. Olson on 07/08/2024. Patient is currently postop day 1 currently sitting up in chair. Patient reports some discomfort. Patient has a past medical history of GERD and macular degenera tion. Patient denies any chest pain or shortness of breath. Patient denies nausea vomiting or diarrhea. Patient denies any urinary burning or frequency. Current vital signs temp 97.5, heart rate 81, respiratory rate 16, blood pressure 132/67 with a pulse ox of 94% on room air discharge planning to home. Review of Systems Please refer to HPI otherwise unremarkable Past Medical History Past Medical History: Eye Disorder, GERD/Reflux, Hearing Disorder / Deafness, Hypertension, Osteoarthritis (OA), Thyroid Disorder Additional Past Medical History / Comment(s): Bilateral macular degeneration, collagenous colitis, bilateral hearing aid use. History of Any Multi-Drug Resistant Organisms: None Reported Past Surgical History: Appendectomy, Joint Replacement, Orthopedic Surgery Additional Past Surgical History / Comment(s): Left bunionectomy, cyst removed from left thigh, colonoscopy, total right and left knee replacement. Past Anesthesia/Blood Transfusion Reactions: No Reported Reaction Additional Past Anesthesia/Blood Transfusion Reaction / Comment(s): "Does not take much anesthesia." Past Psychological History: No Psychological Hx Reported Smoking Status: Never smoker Past Alcohol Use History: Occasional Past Drug Use History: None Reported - Past Family History Mother Family Medical History: No Reported History Father Additional Family Medical History / Comment(s): Heart disease. Son(s) Family Medical History: Cancer Additional Family Medical History / Comment(s): Bladder cancer. Medications and Allergies Home Medications Medication Instructions Recorded Confirmed Type Lovastatin [Mevacor] 40 mg PO HS 06/29/16 07/08/24 History Multivitamins, Thera [Multivitamin] 1 tab PO DAILY 06/29/16 07/08/24 History atenoloL [Tenormin] 25 mg PO QAM 06/29/16 07/08/24 History hydroCHLOROthiazide [Hydrodiuril] 12.5 mg PO QAM 06/29/16 07/08/24 History Vit C/E/Zn/Coppr/Lutein/Zeaxan 1 cap PO BID 10/02/17 07/08/24 History [Preservision Areds 2 Softgel] Levothyroxine Sodium [Synthroid] 137 mcg PO QAM 10/09/17 07/08/24 History Aspirin [Adult Low Dose Aspirin EC] 81 mg PO DAILY 07/03/24 07/08/24 History Cholecalciferol [Vitamin D3 (25 25 mcg PO DAILY 07/03/24 07/08/24 History Mcg = 1000 Iu)] Glucosamine/Chondr Schofield A Sod [Osteo 1 each PO DAILY 07/03/24 07/08/24 History Bi-Flex Caplet] Ibuprofen [Motrin Ib] 400 mg PO DAILY 07/03/24 07/08/24 History Allergies Allergy/AdvReac Type Severity Reaction Status Date / Time Sulfa (Sulfonamide Allergy Itching,hiv Verified 07/08/24 08:42 Antibiotics) es Physical Exam Vitals: Vital Signs Temp Pulse Resp BP BP Pulse Ox 07/09/24 08:14 81 16 07/09/24 08:00 97.5 F L 81 16 132/67 94 L 07/09/24 02:41 98.2 F 75 16 119/68 96 07/08/24 20:28 97.0 F L 79 16 115/67 91 L 07/08/24 17:09 97.5 F L 76 18 131/82 97 07/08/24 15:30 71 12 128/63 97 07/08/24 14:30 71 12 125/74 97 07/08/24 14:00 67 12 125/60 97 07/08/24 13:45 64 16 137/65 97 07/08/24 13:30 69 12 128/61 97 07/08/24 13:15 66 12 124/59 96 07/08/24 13:00 68 12 119/71 96 07/08/24 12:45 74 12 128/69 99 07/08/24 12:30 67 12 123/72 99 07/08/24 12:25 97 F L 60 12 97/55 99 Intake and Output 07/08/24 07/09/24 07/09/24 22:59 06:59 14:59 Intake Total 118 Balance 118 Intake: Oral 118 Other: Voiding Method Toilet Toilet # Voids 1 5 Weight 66.5 kg Head normocephalic Neck supple Lungs clear to auscultation bilaterally no wheezing or crackles Heart regular rate and rhythm S1-S2, no rub or gallop Abdomen is soft nontender nondistended positive bowel sounds no hepatosplenomegaly Extremities no edema. Left leg dressing clean dry and intact Neuro alert and orientated to 3 Results CBC & Chem 7: 07/09/24 03:01 Labs: Abnormal Lab Results - Last 24 Hours (Table) 07/09/24 Range/Units 03:01 WBC 12.23 H (4.50-10.00) X 10*3/uL RBC 3.52 L (4.10-5.20) X 10*6/uL Hgb 10.9 L (12.0-15.0) g/dL Hct 32.5 L (37.2-46.3) % Neutrophils # 9.92 H (1.80-7.70) X 10*3/uL Thrombosis Risk Factor Assmnt - Choose All That Apply Any of the Below Risk Factors Present?: No Other Risk Factors: Yes Each Risk Factor Represents 3 Points: Age 75 years or older Other congenital or acquired thrombophilia - If yes, enter type in comment: Yes Each Risk Factor Represents 5 Points: Elective major lower extremity arthoplasty Thrombosis Risk Factor Assessment Total Risk Factor Score: 8 Thrombosis Risk Factor Assessment Level: High Risk Assessment and Plan Assessment: 1. Status post left knee arthroplasty on 07/08/[address] Olson 2. History of GERD 3. History of macular degeneration 4. History of hypothyroidism 5. History of osteoarthritis with previous total right knee arthroplasty 6. History of essential hypertension DVT prophylaxis Xarelto per orthopedic services Thank you for this consultation we will continue to follow patient closely throughout stay Time with Patient: Greater than 30 (Greater than 60% of the total time spent in counseling and coordination of care)
--- NOTE | 2024-07-09 12:17 | P.DS ---
Providers Date of admission: 07/08/2024 Expected date of discharge: 07/09/24 Attending physician: Brendon Noguera Consults: 07/08/24 12:08 Consult Physician Routine Consulting Provider: Nick Lou Consult Reason/Comments: medical management s/p left total knee arthroplasty Do you want consulting provider notified?: Yes Primary care physician: Marina Lacey Hospital Course: Date of admission: 07/08/2024 Date of discharge: 07/09/2024 Admission diagnosis: Left knee osteoarthritis Discharge diagnosis: Same Attending physician: Dr. Noguera Surgical procedures: Left total knee arthroplasty Brief history: Patient is a 78-year-old female with a history of progressive primary left knee osteoarthritis. At this point patient has failed conservative treatment measures and has opted to proceed with a elective left total knee arthroplasty. Hospital course: Details of patient's surgery can be found in operative report. Patient tolerated the procedure well and was subsequently transported to orthopedic floor. Patient's orthopeidc and medical care was provided daily. Patient had daily laboratory tests performed for evaluation of overall blood counts. Patient had daily physical therapy to include strengthening range of motion as well as education with walker ambulation. Patient was treated with Xarelto for their postoperative DVT prophylaxis during their inpatient stay. Patient was noted to have a relatively uneventful postoperative course. Patient reported satisfactory pain control with oral pain medications by postoperative day 1. Patient showed satisfactory progress with physical therapy. Patient moved steadily through the program and had no difficulty meeting the goals by postoperative day 1. Given patient's otherwise satisfactory course and having met physical therapy goals, plan is to discharge patient home with health services on postoperative day 1. Discharge condition/disposition: Patient will be discharged home with health services in stable condition. Discharge medications: Instructions are given on resumption of patient's normal daily medications per primary care recommendation, in addition patient will be prescribed [place]; senna; Eliquis 2.5 mg twice daily x 2 weeks. Discharge instructions: 1. Wound care and infection precautions, keep incision dry and covered while showering, no lotions, creams, moisturizers. No soaking, tubs, pools, hottubs. Do not scrub over the incision. 2. Weight-bear as tolerated with walker / cane until follow-up. 3. Ice and elevate when necessary. Do not exceed 20 minutes per hour with ice pack. 4. Utilize compression sleeve until seen at first follow up appointment. 5. Visiting nursing care. 6. Home physical therapy including home CPM. 7. Pain meds and anticoagulants per prescription. 8. Pain medication has potential to cause constipation. Increase oral fluid and fiber intake. Contact primary care provider if you have not had a bowel movement within 48 hours after discharge 9. No anti-inflammatory medication until discussed at first post operative visit, this including Motrin, Aleve, Mobic, Diclofenac. 10. Follow up in office at 2 weeks postop with Hamzah Platt PA-C / Masood Brady PA-C 11. Follow up with your primary care doctor 7-10 days after discharge. 12. Contact [facility] with any questions, . Assessment: Left knee osteoarthritis Procedures: Left total knee arthroplasty Patient Condition at Discharge: Good Plan - Discharge Summary Discharge Rx Participant: Yes New Discharge Prescriptions: New Apixaban [Eliquis] 2.5 mg PO BID #60 tab HYDROcodone/APAP 7.5-325MG [[place] 7.5-325] 1 - 2 tab PO Q6HR PRN #32 tab PRN Reason: Pain Sennosides/Docusate Sodium [Senna Plus 8.6-50 mg Softgel] 1 each PO DAILY #20 capsule No Action Multivitamins, Thera [Multivitamin] 1 tab PO DAILY Lovastatin [Mevacor] 40 mg PO HS hydroCHLOROthiazide [Hydrodiuril] 12.5 mg PO QAM atenoloL [Tenormin] 25 mg PO QAM Vit C/E/Zn/Coppr/Lutein/Zeaxan [Preservision Areds 2 Softgel] 1 cap PO BID Levothyroxine Sodium [Synthroid] 137 mcg PO QAM Cholecalciferol [Vitamin D3 (25 Mcg = 1000 Iu)] 25 mcg PO DAILY Aspirin [Adult Low Dose Aspirin EC] 81 mg PO DAILY Ibuprofen [Motrin Ib] 400 mg PO DAILY Glucosamine/Chondr Schofield A Sod [Osteo Bi-Flex Caplet] 1 each PO DAILY Discharge Medication List Lovastatin [Mevacor] 40 mg PO HS 06/29/16 [History] Multivitamins, Thera [Multivitamin] 1 tab PO DAILY 06/29/16 [History] atenoloL [Tenormin] 25 mg PO QAM 06/29/16 [History] hydroCHLOROthiazide [Hydrodiuril] 12.5 mg PO QAM 06/29/16 [History] Vit C/E/Zn/Coppr/Lutein/Zeaxan [Preservision Areds 2 Softgel] 1 cap PO BID 10/02/17 [History] Levothyroxine Sodium [Synthroid] 137 mcg PO QAM 10/09/17 [History] Aspirin [Adult Low Dose Aspirin EC] 81 mg PO DAILY 07/03/24 [History] Cholecalciferol [Vitamin D3 (25 Mcg = 1000 Iu)] 25 mcg PO DAILY 07/03/24 [History] Glucosamine/Chondr Schofield A Sod [Osteo Bi-Flex Caplet] 1 each PO DAILY 07/03/24 [History] Ibuprofen [Motrin Ib] 400 mg PO DAILY 07/03/24 [History] Apixaban [Eliquis] 2.5 mg PO BID #60 tab 07/09/24 [Rx] HYDROcodone/APAP 7.5-325MG [[place] 7.5-325] 1 - 2 tab PO Q6HR PRN #32 tab 07/09/24 [Rx] Sennosides/Docusate Sodium [Senna Plus 8.6-50 mg Softgel] 1 each PO DAILY #20 capsule 07/09/24 [Rx] Follow up Appointment(s)/Referral(s): Masood Brady PAC [PHYSICIAN EVENT EXECUTIVE] - 2 Weeks [facility] [NON-STAFF] - 1-2 Days (will set up delivery for CPM any questions please call agency. ) [facility] [NON[facility]] - 1-2 Days ([facility] care will call to set up schedule any question please call agency. ) Patient Instructions/Handouts: Knee Replacement (GEN) Activity/Diet/Wound Care/Special Instructions: Orthopedic Discharge Instructions: 1. Wound care and infection precautions, keep incision dry and covered while showering, no lotions, creams, moisturizers. No soaking, pools, hot tubs. Do not scrub over incision. 2. Weight-bear as tolerated with walker / cane until follow-up. 3. Ice and elevate when necessary. Do not exceed 20 minutes per hour with ice pack. 4. Utilize compression sleeve until seen at first follow up appointment. 5. Pain meds and anticoagulants per prescription. 6. Pain medication has potential to cause constipation. Increase oral fluid and fiber intake. Contact primary care provider if you have not had a bowel movement within 48 hours after discharge. 7. No anti-inflammatory medication until discussed at first post operative visit, this including Motrin, Aleve, Mobic, Diclofenac. 8. Follow up in office at 2 weeks postop with Hamzah Platt PA-C / Masood Brady PA-C 9. Follow up with your primary care doctor 7-10 days after discharge. 10. Contact [facility] with any questions, . Keep incision clean, dry, intact. While showering, cover fusion tape with Saran wrap. Keep fusion tape on until follow-up appointment in office in 2 weeks. Discharge Disposition: HOME WITH HOME HEALTH SERVICES
--- NOTE | 2024-07-09 12:35 | P.PN ---
Subjective Progress Note Date: 07/09/24 Principal diagnosis: Left knee osteoarthritis Patient was seen at bedside this morning sitting up in chair with legs elevated and dressing present over left knee. Patient says she did work with therapy this morning and walked out into the hallway and up and down steps. Patient says she has urinated since surgery yesterday without issue. Patient says pain is controlled with oral medication. Patient looking forward to going home. Patient denies any other issues at this time. Objective - Vital Signs Vital signs: Vital Signs Temp 97.5 F L 07/09/24 08:00 Pulse 81 07/09/24 08:14 Resp 16 07/09/24 08:14 BP 132/67 07/09/24 08:00 Pulse Ox 94 L 07/09/24 08:00 FiO2 Intake & Output 07/08/24 07/09/24 07/09/24 18:59 06:59 18:59 Intake Total 1051 118 Output Total 50 Balance 1001 118 Weight 66.5 kg Intake: IV 1051 Oral 118 Output: Estimated Blood Loss 50 Other: Voiding Method Toilet Toilet # Voids 1 5 - Exam Left knee: Incision is clean, dry, and intact. The exofin fusion tape is in good condition. There is minimal soft tissue swelling and ecchymosis surrounding the medial and lateral aspects of the incision. Calf is soft, no tenderness with palpation. Plantar flexion, dorsiflexion, EHL, FHL are intact. Sensory exam to light touch throughout the extremity is intact, dorsal pedis pulses 2+. - Labs CBC & Chem 7: 07/09/24 03:01 Labs: Abnormal Lab Results - Last 24 Hours (Table) 07/09/24 Range/Units 03:01 WBC 12.23 H (4.50-10.00) X 10*3/uL RBC 3.52 L (4.10-5.20) X 10*6/uL Hgb 10.9 L (12.0-15.0) g/dL Hct 32.5 L (37.2-46.3) % Neutrophils # 9.92 H (1.80-7.70) X 10*3/uL Assessment and Plan Assessment: 1. Left knee osteoarthritis -Postop day 1 status post left total knee arthroplasty Plan: 1. Left knee osteoarthritis -left total knee arthroplasty from yesterday, 07/08/2024. Patient stable at bedside morning with dressing over left knee. Patient did do well with therapy. Patient does have a walker for home. Discharge home today with health services. 2. Appreciate medical management 3. Pain management -[place] 4. DVT prophylaxis -Xarelto in hospital. Going home with Eliquis 2.5 mg twice daily x 2 weeks 5. GI prophylaxis -senna 6. PT/OT - weight-bearing as tolerated with walker 7. Encourage incentive spirometer use 8. Discharge planning -discharge home today with health services Time with Patient: Less than 30
[2024-07-09 12:50] VITALS: BP 124/61; PULSE 63
[2024-07-09] MEDS ORDERED: ATORVASTATIN 10 MG TAB PO SCH (21:00)
== END 2024-07-09 14:25 | disposition home health service (06) ==
LOC: OR 08:15 → 4SSUR 12:20 → OR 07-09 14:25
PROVIDERS: ATTEND Orthopaedic Surgery
CPT/HCPCS: 64448; 64999; 85025